=== PATIENT | female | born 1950 ===

== ENCOUNTER 2017-09-07 03:20 | Inpatient (IN) | payer OTHER ==
[~2017-09-07] VITALS: Ht 160 cm; Wt 53.1 kg
[2017-09-07] MEDS ORDERED: VITAMIN D1000 UNI1 PO (09:30)
[2017-09-07] MEDS ORDERED: CALCIUM600 M3 PO (09:36)
--- NOTE | 2017-09-07 12:11 | NUCLEAR MEDICINE REPORT ---
EXAMINATION: LYMPHOSCINTIGRAPHY CLINICAL INFORMATION: Right breast cancer. COMPARISON: None. TECHNIQUE: A total of 1.0 mCi technetium 99m Lymphoseek was injected in divided doses around the right areola, and a second set of injections following an additional 1.0 mCi technetium 99m Lymphoseek around the left areola by NANCY Muhammad. Images of the bilateral breasts and axillae in the anterior, ELKINS, and right lateral projections were obtained with simultaneous visualization of the body silhouette using a cobalt flood source, with the patient positioned between the flood source and the gamma camera. FINDINGS: Bilateral sentinal sentinel nodes are visualized. Multiple second echelon nodes are visualized in the bilateral axillae. IMPRESSION: A sentinal node in each axillary region is visualized.
--- NOTE | 2017-09-07 13:37 | Operative Report ---
Operative/Inv Procedure Report Surgery Date: 09/07/17 Name of Procedure: Bilateral mastectomy, bilateral sentinel lymph node biopsy Pre-Operative Diagnosis: Bilateral breast cancer Post-Operative Diagnosis: Same Estimated Blood Loss: less than 50ml Surgeon/Blanket Weaver: Abbey Henriquez MD Anesthesia: laryngeal mask airway Specimens: Right breast, suture wood medial, sentinel lymph node 2, left breast suture wood medial, sentinel lymph nodes 2 Operative/Procedure Note Note: Patient status post a needle biopsy showing right breast cancer at 9:00 and 11: 00 as well as a left breast cancer at 3:00. She was brought to the operating room for surgical management. She opted for mastectomy. Preoperative lymphoscintigraphy were performed and those films were reviewed. Patient was brought to the operating room and given 2 g of Ancef. Bilateral breasts were prepped and draped in sterile fashion ChloraPrep. 3 mL of methylene blue diluted 2 mL of saline was injected in the retroareolar fashion bilaterally. The right breast was approached first. Curvilinear incisions were made above and below the nipple areolar complex. Flaps were created superiorly to the level of the clavicle medially to the sternum, inferiorly to the superior border the rectus sheath and laterally to the latissimus. All breast tissue was then removed from the pectoralis fascia. A suture was used to candi the medial aspect. The axilla was explored. There were 2 hot lymph nodes identified. After those were removed, there were no other hot, blue, or palpable lymph nodes in the axilla. The left breast was then approached.Curvilinear incisions were made above and below the nipple areolar complex. Flaps were created superiorly to the level of the clavicle medially to the sternum, inferiorly to the superior border the rectus sheath and laterally to the latissimus. All breast tissue was then removed from the pectoralis fascia. A suture was used to candi the medial aspect. The axilla was explored. There were 2 hot lymph nodes identified. After those were removed, there were no other hot, blue, or palpable lymph nodes in the axilla. Hemostasis was achieved. #10 ALYSE drain was were placed and fastened to the skin using nylon sutures. Deep dermis was closed using interrupted Vicryl sutures and the skin was closed using a running Biosyn subcuticular stitch. Steri- Strips and sterile dressings were applied and the patient was transferred to the recovery room in satisfactory condition having tolerated the procedure well.
--- NOTE | 2017-09-07 13:43 | Admission Core Measures ---
Acute Coronary Syndrome (CM) ACS Core Measures Acute Coronary Syndrome Diagnosis No Congestive Heart Failure (NEW) CHF Core Measures Congestive Heart Failure Diagnosis No Cerebrovascular Accident (NEW) CVA Core Measures CVA/TIA Diagnosis No Venous Thromboembolism VTE Core Shruti (View Protocol) VTE Risk Factors Surgery No Mechanical VTE Prophylaxis d/t N/A MechProphylax Ordered No VTE Pharm Prophylaxis d/t NA PharmProphylax ordered Problem List As ranked by this Provider includes Assessment & Plan 1. Bilateral breast cancer HOME MEDS Home Med List Calcium (Elemental-Fr Calcarb) (Calcium) 600 MG CALCIUM (1,500 MG) TABLET 1 TAB PO DAILY SUPPLEMENT (Reported) Cholecalciferol (Vitamin D3) (Vitamin D) 1,000 UNIT CAPSULE 1 TAB PO DAILY SUPPLEMENT (Reported)
[2017-09-07 16:20] VITALS: BP 106/60
--- NOTE | 2017-09-07 17:13 | PN- General Surgery ---
Subjective Subjective: post-op check pt sitting in bed with minimal pain. tolerating PO. Voided. Ambulating denies CP/SOB. Objective Vital Signs and I&Os gen-NAD resp-clear Chest wall dressing clean and dry. left ALYSE drain with scant sng output. Right ALYSE drain with about 5cc sang drainage. bulbs on selfsuction cardio-RRR abd- soft, nontender ext- no calf tenderness, no edema Assessment/Plan Assessment/Plan 66yo F SP bilat mastectomy with sentinal nodes POD0 plan for likely DC to home tomorrow around noon. PO pain meds dvt ppx- SQ hep and ALPS to keep ALYSE drains in place, record output Q shift reg diet encourage IS and ambulation Core Measures Venous Thromboembolism VTE Risk Factors Surgery No Mechanical VTE Prophylaxis d/t N/A MechProphylax Ordered No VTE Pharm Prophylaxis d/t NA PharmProphylax ordered
[2017-09-07] MEDS ORDERED: MOTRIN IB200 M1 PO (17:20)
[2017-09-07] MEDS ORDERED: PROTONIX20 M1 PO (17:20)
[2017-09-07] MEDS ORDERED: COLACE100 M1 PO (17:20)
[2017-09-07] MEDS ORDERED: PERCOCET 5-3251 EACH PO (17:20)
--- NOTE | 2017-09-07 17:26 | Patient Discharge Instructions ---
Discharge Instructions General Discharge Information You were seen/treated for: bilateral breast cancer You had these procedures: bilateral mastectomies with sentinal node resection Watch for these problems: fever over 101 redness and drainage from incision redness and swelling in legs No bath, but you may shower: Yes Other wound care: keep wound clean and dry. Empty drains daily and record output Diet Continue normal diet: Yes Activity Activity Self Limited: Yes Pounds, do NOT lift more than: 10 Other activity limits: Do no lift arms overhead Acute Coronary Syndrome Inclusion Criteria At DC or during hospital stay patient has or had the following: Discharge Core Measures Meds if any: Prescribed or Continued at Discharge Meds if any: NOT Prescribed or Continued at Discharge Congestive Heart Failure Inclusion Criteria At DC or during hospital stay patient has or had the following: Discharge Core Measures Meds if any: Prescribed or Continued at Discharge Meds if any: NOT Prescribed or Continued at Discharge Cerebrovascular accident Inclusion Criteria At DC or during hospital stay patient has or had the following: CVA/TIA Diagnosis No Discharge Core Measures Meds if any: Prescribed or Continued at Discharge Meds if any: NOT Prescribed or Continued at Discharge Venous thromboembolism Discharge Core Measures - Per Current guidelines, there needs to be overlap - treatment for the first 5 days of Warfarin therapy. - If discharged on Warfarin prior to 5 days of - overlap therapy, the patient will need to be - assessed for post discharge needs including - *Post discharge parental anticoagulation - *Warfarin and/or parental anticoagulation education - *Follow up date to check INR post discharge Meds if any: Prescribed or Continued at Discharge Note: Overlap Therapy is Warfarin and Anticoagulant Meds if any: NOT Prescribed or Continued at Discharge
[2017-09-07 22:23] VITALS: BP 110/62
[2017-09-08 06:11] VITALS: BP 90/50
--- NOTE | 2017-09-08 07:27 | PN- General Surgery ---
Subjective Subjective: No acute events overnight, no complaints, pain is well controlled, not taking much pain medication and patient is comfortable. Objective Vital Signs and I&Os Vital Signs Date Time Temp Pulse Resp B/P B/P Pulse O2 O2 Flow FiO2 Mean Ox Delivery Rate 09/08 0611 98.3 68 20 90/50 97 Room Air 09/07 2223 98.2 69 20 110/62 98 Room Air 09/07 2107 Room Air Room Air 09/07 1620 97.9 72 20 106/60 100 Room Air Intake & Output 09/08 0000 09/07 1600 09/07 0809/07 0000 09/06 1600 Intake Total 800 Output Total 450 Balance 350 Intake, IV 100 Intake, Oral 700 Output, 50 Drainage Output, Urine 400 Patient 117 lb Weight Weight Reported by Patient Measurement Method Physical Exam: Well-developed well-nourished no apparent distress. HEENT: Atraumatic, extraocular motion intact Neck: Supple, no lymphadenopathy Respiratory: No respiratory distress Chest: Dressings clean dry and intact bilaterally. JVP outputs with 5-10 mL of serosanguineous drainage. No extremity edema, no erythema of the incision, no swelling. Extremities: No edema, no calf pain Neuro: Alert and oriented x3 Psych: Mood affect normal, normal memory normal judgment. Skin: Warm and dry, no rash on exposed skin Assessment/Plan Assessment/Plan Postop day 1 status post bilateral breast mastectomies with sentinel biopsy Continue ALYSE 2 to self suction, to be discharged with these in place Pain medication as needed Plan for discharge to home today Follow-up in the office in 1 week Discharge instructions and drain care discussed with patient Core Measures Venous Thromboembolism VTE Risk Factors Surgery No Mechanical VTE Prophylaxis d/t N/A MechProphylax Ordered No VTE Pharm Prophylaxis d/t NA PharmProphylax ordered
--- NOTE | 2017-09-08 08:41 | Surgical Discharge Summary ---
Visit Information Visit Dates Admission Date: 09/07/17 Discharge Date: 09/08/17 History of Present Illness Chief Complaint: Bilateral breast cancers Medical History Blood Transfusion Hx: No Neurological: NONE EENT: NONE Cardiovascular: NONE Respiratory: NONE Gastrointestinal: NONE Hepatic: NONE Renal: NONE Musculoskeletal: NONE Psychiatric: NONE Endocrine: NONE Blood Disorders: NONE Cancer(s): breast cancer [employer] AND FORMER/Reproductive: NONE History of MRSA: No History of VRE: No History of CDIFF: No Isolation History: Standard Surgical History Pertinent Surgical History: non-contributory Psychosocial History Where Do You Live? Home Who Do You Live With? Daughter Services at Home: None What is Your Primary Language? Kazakh (Old,[place]) Review of Systems: neg Hospital Course Course Attending Physician: Abbey Henriquez MD Primary Care Physician: Yon Ruelas DO Hospital Course: Patient was admitted on 09/07/17 for bilateral mastectomy and bilateral sentinel node biopsies. She did well post operatively. On POD1 she was tolerating a diet, JPs remained serosanguinous and pain was controlled. She will be discharged home with po pain medication and ALYSE drains in place. Allergies: Coded Allergies: No Known Allergies (09/07/17) Disposition Summary Disposition Principal Diagnosis: Bilateral breast cancer Additional Diagnosis: none Discharge Disposition: home or self care Discharge Instructions General Discharge Information Code Status: Full Code Patient's Diet: ad renzo Patient's Activity: ad renzo Follow-Up Instructions/Appts: Dr. Henriquez one week for ALYSE removal Medications at Discharge Discharge Medications: Continue taking these medications: Cholecalciferol (Vitamin D3) (Vitamin D) 1,000 UNIT CAPSULE 1 Tablet ORAL DAILY Calcium (Elemental-Fr Calcarb) (Calcium) 600 MG CALCIUM (1,500 MG) TABLET 1 Tablet ORAL DAILY Start taking the following new medications: Ibuprofen (Motrin Ib) 200 MG TABLET 600 Milligram ORAL Q8H as needed for SURGICAL PAIN Qty = 30 No Refills Instructions: TAKE WITH FOOD Docusate Sodium (Colace) 100 MG CAPSULE 1 Capsule ORAL TWICE DAILY Qty = 14 No Refills Instructions: STOP TAKING IF YOU DEVELOP LOOSE STOOL/DIARRHEA Pantoprazole Sodium (Protonix) 20 MG TABLET.DR 1 Tablet ORAL DAILY Qty = 14 No Refills Oxycodone HCl/Acetaminophen (Percocet 5-325 MG Tablet) 5 MG-325 MG TABLET 1-2 Tablet ORAL EVERY 4-6 HOURS as needed for postop pain Qty = 12 No Refills
== END 2017-09-08 12:40 | DRG 581 ==
LOC: SDA 03:20 → 2NA 03:20 → SDA 07:00 → EDSTATUS 07:00 → STS 07:00 → XRY 09:00 → ENRESERV 14:17 → ENTRNSPT 15:41 → EDTRNSPT 16:21 → 2NA 16:21 → EDTRNSPTSTS 16:21 → CMPTRNSPT 16:37 → ENPENDDIS 09-08 08:20 → 2NA 09-08 12:40
PROC: 0HTV0ZZ Resection of Bilateral Breast, Open Approach (ICD-10-PCS; principal; 2017-09-07)
PROC: 07B60ZX Excision of Left Axillary Lymphatic, Open Approach, Diagnostic (ICD-10-PCS; 2017-09-07)
PROC: 07B50ZX Excision of Right Axillary Lymphatic, Open Approach, Diagnostic (ICD-10-PCS; 2017-09-07)
DX: C50.912 Malignant neoplasm of unspecified site of left female breast (principal); C50.911 Malignant neoplasm of unspecified site of right female breast; E78.00 Pure hypercholesterolemia, unspecified; F17.210 Nicotine dependence, cigarettes, uncomplicated; E55.9 Vitamin D deficiency, unspecified
CPT/HCPCS: 2NAP; A9520; C9399; J0131; J0690; J1644; J2405; J2550; Q9968